=== PATIENT | male | born 1985 | race Hispanic/Latino ===

== ENCOUNTER 2018-01-17 16:55 | Emergency (ER) | payer SELFPAY ==
[2018-01-17 16:58] VITALS: BP 133/74; PULSE 83; RESP 16; TEMP 36.9; O2SAT 99; BMI 22.7
--- NOTE | 2018-01-17 17:40 | RAD_ITS ---
STUDY: X-RAY CHEST REASON FOR EXAM: Male, 32 years old. Trauma TECHNIQUE: Frontal and lateral views of the chest COMPARISON: None. FINDINGS: The lungs are clear. There are no pleural effusions. There is no pneumothorax. The heart is normal in size. The visualized osseous structures are within normal limits. RAD/Chest PA and Lateral IMPRESSION: No acute thoracic pathology. Electronically Signed: Ryland Gibson, at 17:56 EDT Tel , Service support ,
--- NOTE | 2018-01-17 18:34 | ED.VISSUMM ---
- ER Visit Summary Date of Service: 01/17/18 Chief Complaint: [Injury to right chest] History of Present Illness: The patient is a 32 M [presents to the emergency department after sustaining an injury to his right chest 6 days ago. Patient apparently had a fever a week and a half ago and thought he was feeling better but went to work and passed out falling onto a bucket. Patient did not want to seek medical attention initially. Patient continues to have pain to his right chest with movement and trying to lift things with his right arm. Patient denies any shortness of breath. Patient denies any hemoptysis.] Physical Examination: [HEENT-PERRLA, EOMI. Cranial nerves II through XII grossly intact. TMs clear. Mucous membranes moist. No adenopathy. Cardiovascular-regular rate and rhythm without murmur or ectopy Lungs-good aeration bilaterally. Chest wall is stable without crepitus or subcu emphysema. Patient has superficial abrasion over the right chest wall in the mid axillary line. Patient has tenderness to palpation over the right lower anterior ribs. Abdomen-normoactive bowel sounds, soft, nontender, no rebound or rigidity, no peritoneal signs. No tenderness over the liver. Extremities-intact ?4, normal range of motion, normal pulses, atraumatic] Test Results: [Chest x-ray obtained was normal] Emergency Department Course and Treatment: [Patient was given [place] for pain.] Treatment Plan: [Patient will be given a prescription for [place]] Disposition: [Discharged home in stable condition]. Patient advised to return if increasing shortness of breath, hemoptysis, or condition should worsen in any way. Impression: [Chest wall contusion-possible occult rib fracture] This note was generated with Closely dictation software. It may contain incorrect words, spelling, and punctuation that were not noted in review of the chart prior to signing ED Disposition - Plan for ED Patient: Chief Complaint: Fall Referrals: Care Physician,No Primary [Primary Care Provider] -
--- NOTE | 2018-01-17 18:37 | ED.DCSUM_ITS ---
- ER Visit Summary Date of Service: 01/17/18 Chief Complaint: [Injury to right chest] History of Present Illness: The patient is a 32 M [presents to the emergency department after sustaining an injury to his right chest 6 days ago. Patient apparently had a fever a week and a half ago and thought he was feeling better but went to work and passed out falling onto a bucket. Patient did not want to seek medical attention initially. Patient continues to have pain to his right chest with movement and trying to lift things with his right arm. Patient denies any shortness of breath. Patient denies any hemoptysis.] Physical Examination: [HEENT-PERRLA, EOMI. Cranial nerves II through XII grossly intact. TMs clear. Mucous membranes moist. No adenopathy. Cardiovascular-regular rate and rhythm without murmur or ectopy Lungs-good aeration bilaterally. Chest wall is stable without crepitus or subcu emphysema. Patient has superficial abrasion over the right chest wall in the mid axillary line. Patient has tenderness to palpation over the right lower anterior ribs. Abdomen-normoactive bowel sounds, soft, nontender, no rebound or rigidity, no peritoneal signs. No tenderness over the liver. Extremities-intact ?4, normal range of motion, normal pulses, atraumatic] Test Results: [Chest x-ray obtained was normal] Emergency Department Course and Treatment: [Patient was given [place] for pain.] Treatment Plan: [Patient will be given a prescription for [place]] Disposition: [Discharged home in stable condition]. Patient advised to return if increasing shortness of breath, hemoptysis, or condition should worsen in any way. Impression: [Chest wall contusion-possible occult rib fracture] This note was generated with [employer] dictation software. It may contain incorrect words, spelling, and punctuation that were not noted in review of the chart prior to signing ED Disposition - Plan for ED Patient: Chief Complaint: Fall Referrals: Care Physician,No Primary [Primary Care Provider] -
--- NOTE | 2018-01-17 18:37 | ED.DEP ---
ED Disposition - Plan for ED Patient: Chief Complaint: Fall Instructions: ED Mechanical Fall, ED Contusion Chest Wall, ED Contusion Vs Minor Fx Rib Prescriptions: Hydrocodone Bitart/Apap 5-325 [[place] 5/325] 1 - 2 tab PO Q4H PRN PRN 5 Days #20 tab PRN Reason: Pain Referrals: Care Physician,No Primary [Primary Care Provider] - Tommy Martinez MD [STAFF PHYSICIAN] - 5-7 Days
--- NOTE | 2018-01-17 18:40 | DCINST.ED_ITS ---
ED Disposition - Plan for ED Patient: Chief Complaint: Fall Instructions: ED Mechanical Fall, ED Contusion Chest Wall, ED Contusion Vs Minor Fx Rib Prescriptions: Hydrocodone Bitart/Apap 5-325 [[place] 5/325] 1 - 2 tab PO Q4H PRN PRN 5 Days #20 tab PRN Reason: Pain Referrals: Care Physician,No Primary [Primary Care Provider] - Tommy Martinez MD [STAFF PHYSICIAN] - 5-7 Days
--- NOTE | 2018-01-17 18:40 | ED.DEP ---
ED Disposition - Plan for ED Patient: Chief Complaint: Fall Instructions: ED Contusion Chest Wall, ED Mechanical Fall, ED Contusion Vs Minor Fx Rib Prescriptions: Hydrocodone Bitart/Apap 5-325 [[place] 5/325] 1 - 2 tab PO Q4H PRN PRN 5 Days #20 tab PRN Reason: Pain Referrals: Tommy Martinez MD [STAFF PHYSICIAN] - 5-7 Days Care Physician,No Primary [Primary Care Provider] -
[2018-01-17] MEDS: HYDROcodone Bitartrate/Apap 5/325 Tablet PO (18:44)
[2018-01-17 18:48] VITALS: BP 133/74; PULSE 81; RESP 18
--- NOTE | 2018-03-22 09:52 | STRESSREP ---
Stress Test Report Treadmill EKG report: Resting EKG: Normal sinus rhythm, normal axis, low voltage. No previous myocardial infarction noted. Treadmill EKG: Patient exercise according to Huy protocol for 8 minutes and 30 seconds achieving a maximum workload of 10.1 0 METS. Resting heart rate was initially 70 beats a minute and sergio to maximum 166 beats a minute which represents 97% of the maximal age-predicted heart rate. Resting blood pressure was 132/88 sergio to maximum of 158/88. Test was terminated due to the attainment of target heart rate and dyspnea. During exercise the patient's heart rate increased as expected. Patient had no dynamic EKG changes to suggest ischemia. No arrhythmias noted. Conclusions: Normal adequate treadmill EKG. Negative for ischemia by EKG criteria. No anginal symptoms noted. No arrhythmias noted. Appropriate blood pressure response to exercise. Average exercise capacity for age. Test terminated due to dyspnea. No complications.
== END 2018-01-17 18:49 | disposition home or self-care (01) ==
PROVIDERS: Emergency Provider Emergency Medicine
DX: S20.219A Contusion of unspecified front wall of thorax, initial encounter (principal); W18.30XA Fall on same level, unspecified, initial encounter; Y93.9 Activity, unspecified; Y92.9 Unspecified place or not applicable; Y99.9 Unspecified external cause status
CPT/HCPCS: 71046; 99282

== ENCOUNTER → 2019-02-13 15:16 | Outpatient (CLI) | payer OTHER, SELFPAY ==
[2019-02-13 15:10] VITALS: BMI 22.8
--- NOTE | 2019-02-13 15:17 | RAD_ITS ---
STUDY: X-RAY - LEFT HAND REASON FOR EXAM: Male, 33 years old. Pain in fourth finger TECHNIQUE: 4 view(s) of the hand. COMPARISON: None. FINDINGS: Normal radiocarpal articulation. Normal distal radioulnar joint. Normal visualized carpal bones. Normal carpal articulations Normal carpometacarpal articulation of the thumb. Normal second through fifth carpometacarpal joints. Normal metacarpi. Normal metacarpophalangeal joint of the thumb. Normal interphalangeal joint of the thumb. Normal proximal and distal phalanges of the thumb. Normal metacarpophalangeal joints of the second through fifth fingers. Normal proximal and distal interphalangeal joints of the second through fifth fingers. There is a comminuted fracture of the proximal phalanx of the fourth finger with no significant bony displacement. The soft tissue structures are unremarkable. RAD/Hand Min 3 Views IMPRESSION: There is a comminuted fracture of the proximal phalanx of the fourth finger. Electronically Signed: Guanakito Breen DO at 18:53 EDT Tel [phone], Service support ,
== END ==
PROVIDERS: Referring Provider Orthopaedic Surgery; Visit Provider Orthopaedic Surgery
DX: S62.615A Displaced fracture of proximal phalanx of left ring finger, initial encounter for closed fracture (principal); S67.22XA Crushing injury of left hand, initial encounter; X58.XXXA Exposure to other specified factors, initial encounter; Y93.9 Activity, unspecified; Y92.9 Unspecified place or not applicable; Y99.9 Unspecified external cause status
CPT/HCPCS: 73130

== ENCOUNTER → 2019-03-01 15:41 | Outpatient (CLI) | payer OTHER, SELFPAY ==
[2019-02-13 15:10] VITALS: BMI 22.8
--- NOTE | 2019-03-01 15:43 | RAD_ITS ---
STUDY: X-RAY - LEFT HAND REASON FOR EXAM: Male, 33 years old. Fracture follow-up. Cast removal. TECHNIQUE: 4 view(s) of the hand. COMPARISON: February 13, 2019 FINDINGS: Normal radiocarpal articulation. Normal distal radioulnar joint. Normal visualized carpal bones. Normal carpal articulations Normal carpometacarpal articulation of the thumb. Normal second through fifth carpometacarpal joints. Normal metacarpi. Normal metacarpophalangeal joint of the thumb. Normal interphalangeal joint of the thumb. Normal proximal and distal phalanges of the thumb. Normal metacarpophalangeal joints of the second through fifth fingers. Normal proximal and distal interphalangeal joints of the second through fifth fingers. There is a comminuted fracture of the mid and proximal diaphysis of the fourth proximal phalanx. No intra-articular involvement is visualized. There is no significant displacement. The fracture has not significantly changed in appearance since the prior examination. The soft tissue structures are unremarkable. RAD/Hand Min 3 Views IMPRESSION: Stable comminuted fourth proximal phalanx fracture. Electronically Signed: Cheryl Randall MD at 16:05 EDT Tel , Service support ,
== END ==
PROVIDERS: Referring Provider Orthopaedic Surgery; Visit Provider Orthopaedic Surgery
DX: S62.615A Displaced fracture of proximal phalanx of left ring finger, initial encounter for closed fracture (principal); S67.22XA Crushing injury of left hand, initial encounter; X58.XXXA Exposure to other specified factors, initial encounter; Y93.9 Activity, unspecified; Y92.9 Unspecified place or not applicable; Y99.9 Unspecified external cause status
CPT/HCPCS: 73130

== ENCOUNTER → 2019-03-17 11:28 | Outpatient (CLI) | payer OTHER, SELFPAY ==
[2019-03-17 07:59] VITALS: BMI 22.8
--- NOTE | 2019-03-17 11:29 | RAD_ITS ---
HISTORY:INJURY, PAIN INJURY, PAIN COMPARISON: March 01, 2019 FINDINGS: # of images incl. paperwork: 3 XR Hand Min 3 Views: Left BONE AND JOINTS: Again noted a spiral fracture involving the proximal phalanx of the fourth finger left hand. No significant displacement. SOFT TISSUES: Unremarkable. No radiopaque foreign body. RAD/Hand Min 3 Views IMPRESSION: Fourth finger fracture left hand. Similar at 2359 Reported and signed by: Siobhan Birch DO Electronically Signed: Siobhan Birch DO at 23:58 EDT Tel , Service support ,
== END ==
PROVIDERS: Referring Provider Orthopaedic Surgery; Visit Provider Orthopaedic Surgery
DX: S62.615A Displaced fracture of proximal phalanx of left ring finger, initial encounter for closed fracture (principal); X58.XXXA Exposure to other specified factors, initial encounter; Y93.9 Activity, unspecified; Y92.9 Unspecified place or not applicable; Y99.9 Unspecified external cause status
CPT/HCPCS: 73130

== ENCOUNTER 2019-03-30 16:00 | Outpatient (RCR) | payer OTHER, SELFPAY ==
[2019-03-01 16:00] VITALS: BMI 22.8
--- NOTE | 2019-03-08 07:50 | HP.OTEVAL_ITS ---
Patient's Visit Information MICHAEL WICK is a 33 year old M, referred to Occupational Therapy by Anish Cruz DO, with a diagnosis of left RF crushing injury fx. Date of Evaluation: 03/06/19 Occupational Therapist: LORENZO Will/[place], CHT - Subjective Subjective: This 33 year old male was seen for OT eval with dx of left ring finger crushing injury. Pt arrives with his brother who is interpreting for pt. DOI 01/18/19 pt was casted for 5 weeks- per pt due to slow healing. Today pt reports pain and difficulty with wrist and digit ROM limiting full use of his left hand. - Pain left hand 2 Pain Intensity Range: 0, 5 - ROM Wrist: right 75/60 left 55/45 ROM Comments: left RF MCP 0/70 PIP 0/75 DIP 0/50 right MCP 0/80 PIP 0/105. 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 Pt will demo an increase in lateral and tripod pinch by 2# to increase pts independent with opening baggies, containers at PLOF by D/C. Goal:: Pt will demo an increase in wrist and left RF/LF ROM equal to unaffected wrist to return pt to PLOF with grooming, dressing and home mtg tasks by D/C. pt will demo complete left handed composite grasp equal to right to increase ind. use of left hand for ADLs and IADLS by d/c Goal:: Pt will report no pain greater than 1/10 with use of left hand for daily tasks and simulated work tasks in theray by d/c - Rehabilitation General Assessment: Pt demo with limited ROM and strength of left wrist/hand. This is limiting pt with ADLs, IADLs and work tasks. Pt would benefit from skilled OT services 2-3 x week for 4 weeks to return pt to PLOF. Today pt was instructed in AROM ex and given handout. pt and pts brother demo understanding and agree to POC. Rehabilitation Potential: Excellent - Anticipated Interventions Anticipated Interventions: A/AAROM/PROM, Strengthening, Edema Control, Modalities, Orthoses - Visit Plan Frequency: 2-3x /Week Duration: 4 Weeks TEXT: Thank you for the opportunity to evaluate your patient. For Medicare and Medicare HMO plans, please review the plan of care and approve it. It will need to be FAXED BACK to us at [phone] for Medicare purposes. Please let me know if there are questions or concerns regarding this plan of care. Physician Signature: Date:
[2019-03-17 07:59] VITALS: BMI 22.8
--- NOTE | 2019-05-08 09:17 | HP.OTDCNRP_ITS ---
HP - Discharge Summary - Patient Information MICHAEL WICK was seen in my office for initial evaluation on 03/06/19. The following Plan of Care was established for this patient: Initial Frequency: 2-3x /Week Initial Duration: 4 Weeks Plan: wait for c9 approval - Anticipated Interventions Anticipated Interventions: A/AAROM/PROM, Strengthening, Edema Control, Modalities, Orthoses This patient was last seen in our office 03/30/19. Pertinent comments regarding their Occupational therapy will appear below: PT was seen for 2 OT sessions, we worked on return of pts ROM and strength. pt w as progressing well. He has not scheduled any further apt at this time. At this point I will be discontinuing this patient from occupational therapy. I would be happy to see this patient again in the future if found appropriate by the physician. Thank you! Eun Kelley, OTR/L, CHT
== END 2019-03-30 19:00 | disposition home or self-care (01) ==
LOC: OT 16:00
PROVIDERS: Referring Provider Orthopaedic Surgery; Visit Provider Orthopaedic Surgery
DX: S62.615D Displaced fracture of proximal phalanx of left ring finger, subsequent encounter for fracture with routine healing (principal); S67.22XD Crushing injury of left hand, subsequent encounter
CPT/HCPCS: 97110; 97140; 97166

== ENCOUNTER 2021-06-07 14:38 | Emergency (ER) | payer SELFPAY ==
[2021-06-07 14:39] VITALS: BP 110/75; PULSE 79; RESP 14; TEMP 36.8; O2SAT 98; BMI 21.1
--- NOTE | 2021-06-07 15:13 | CT_ITS ---
STUDY: CT BRAIN WITHOUT CONTRAST REASON FOR EXAM: Male, 35 years old. Headache RADIATION DOSAGE (If Supplied By Facility): CTDIvol = ( 44.99 ) mGy, DLP = ( 745.49 ) mGycm TECHNIQUE: Transaxial CT imaging of the brain was performed without administration of intravenous contrast material. Individualized dose optimization techniques were used for this CT. COMPARISON: No relevant priors. FINDINGS: Brain parenchyma is without focal lesions, mass effect, acute intracranial hemorrhage, extra parenchymal fluid collections, hydrocephalus or herniation. The skull is intact. CT/Brain/Head without Contrast IMPRESSION: 1. Normal CT brain. Electronically Signed: Navin Granado MD at 16:27 EDT Tel , Service support ,
--- NOTE | 2021-06-07 15:14 | CT_ITS ---
STUDY: CT ABDOMEN AND PELVIS WITH CONTRAST REASON FOR EXAM: Male, 35 years old. Abdominal pain RADIATION DOSAGE (If Supplied By Facility): CTDIvol = ( 9.64 ) mGy, DLP = ( 520.35 ) mGycm TECHNIQUE: CT images were obtained from the dome of the diaphragm to the symphysis pubis without oral contrast. IV 100mL Isovue-300 was administered. Sagittal and coronal images were reconstructed. Individualized dose optimization techniques were used for this CT. COMPARISON: None. FINDINGS: The visualized lung bases are unremarkable. The visualized portions of the heart are within normal limits. Normal liver. Normal gallbladder and extrahepatic biliary system. Normal spleen. Normal pancreas. Normal bilateral adrenal glands. Normal right kidney. Normal left kidney. Normal visualized stomach. Normal small intestine. Normal colon. The appendix is visualized and appears normal. Normal abdominal aorta. Normal inferior vena cava. Normal retroperitoneum. Normal urinary bladder. Normal abdominal wall. Normal osseous structures. CT/Abdomen/Pelvis W IV Cont ONLY IMPRESSION: Normal enhanced CT of the abdomen and pelvis. Electronically Signed: Navin Granado MD at 16:31 EDT Tel , Service support ,
--- NOTE | 2021-06-07 15:16 | EDS_ITS ---
HPI History of Present Illness Chief Complaint: Weakness Narrative Narrative: 35-year-old male presenting with his brother for evaluation of 3 months of weakness. Patient's brother interprets for him. He states that he has had intermittent headaches over the last 3 months. He also complains of shortness of breath at times. He complains of dyspepsia and epigastric burning as well as acid reflux. Patient does state that he has epigastric pain. His brother states that he is losing weight. Yesterday the patient had to leave work because he was too weak and tired. Patient has not seen a primary care physician because he does not have insurance. He states he does not have a fever, chills. He denies constipation or diarrhea. He has no history of migraines. PFSH PFSH Allergy/AdvReac Type Severity Reaction Status Date / Time No Known Allergies Allergy Unverified 02/13/19 15:11 Social History Smoking Status: Never smoker ROS ROS ED Constitutional Constitutional ED: Reports weight loss; Denies chills or fever(s) Eyes Eyes: Denies blurry vision or diplopia ENT ENT ED: Denies rhinorrhea or sore throat Cardiovascular Cardiovascular: Reports chest pain; Denies palpitations Respiratory/Chest Respiratory/Chest: Reports dyspnea and dyspnea on exertion; Denies cough Gastrointestinal Gastrointestinal: Reports abdominal pain and other Details: Dyspepsia Genitourinary Genitourinary ED: Denies dysuria or hematuria Musculoskeletal Musculoskeletal: Denies arthralgias, back pain, myalgias or neck pain Integumentary Denies Abrasions or rash Neurologic Neurologic: Reports headache(s); Denies paresthesias EXAM Physical Exam Const Vital Signs: 06/07/21 14:39 06/07/21 14:46 06/07/21 17:10 Temperature 98.2 F Temperature Source Temporal Pulse Rate 79 Respiratory Rate 14 16 Respiratory Effort Normal Non-Labored Respiratory Pattern Normal Blood Pressure 110/75 97/68 Blood Pressure Mean 86 77 Pulse Ox 98 Oxygen Delivery Method Room Air Positive well nourished and well developed General Appearance ED: well developed and NAD; Negative for pallor HEENT Reports moist mucous membranes Negative for trauma Eyes PERRL and EOMs intact bilaterally General Eye ED: Negative for pale conjunctiva or scleral icterus Neck no lymphadenopathy and supple Chest Wall inspection of chest normal and palpation of chest normal Resp normal respiratory effort and clear to auscultation bilaterally Effort and Inspection: Negative for pain with movement Auscultation: Negative for rales or rhonchi Cardio regular rate, regular rhythm and no murmurs GI normal to inspection, nondistended, normoactive bowel sounds Extremity normal to inspection General Extremety ED: Negative for edema or tenderness General Extremity: Negative for edema Neuro oriented x3, CN's II-XII intact bilaterally and no sensory deficits noted Sensorium / Orientation: alert Motor Exam: strength 5/5 throughout Psych mental status grossly normal Skin no rashes or lesions noted and no wounds General Skin Exam: Negative for jaundice or pallor MDM MDM MDM Narrative Medical decision making narrative: Patient presents with his brother with multiple symptoms. His brother does interpret. Patient expresses some epigastric discomfort as well as some intermittent chest pains as well as fatigue and headache. Patient's lab work-up is unremarkable. Urine drug screen is negative. Urinalysis is negative. CT brain is negative for acute intracranial process. CT of the abdomen pelvis shows no acute abnormality. EKG on my interpretation shows a normal sinus rhythm with a ventricular rate of 63 bpm without signs of ischemic changes. Patient was treated with Reglan and Benadryl for his head and his headache is resolved. He was given IV Pepcid and his epigastric pain is also resolved. Patient has mother counseled that they need to establish with a primary care provider in one was provided. They are given instructions to buy an [id number] PPI. All questions were answered and the patient was discharged home in stable condition. Impression: 1. Headache 2. Generalized weakness unknown cause 3. Abdominal pain Lab Data Attestation: I reviewed the patient's lab results. Labs: Laboratory Results - last 24 hr 06/07/21 06/07/21 06/07/21 15:35 15:35 16:20 WBC 6.2 RBC 5.05 Hgb 15.9 Hct 46.5 MCV 92.1 MCH 31.5 MCHC 34.2 RDW Std Deviation 41.2 RDW Coeff of Irvin 12.2 Plt Count 192 MPV 11.0 Immature Gran % (Auto) 0.300 Neut % (Auto) 61.0 Lymph % (Auto) 22.3 [place] % (Auto) 6.3 Eos % (Auto) 9.5 H Baso % (Auto) 0.6 Absolute Neuts (auto) 3.8 Absolute Lymphs (auto) 1.39 Nucleated RBC % 0 Sodium 138 Potassium 3.9 Chloride 107 Carbon Dioxide 26.0 Anion Gap 5 BUN 17 Creatinine 0.79 Estim Creat Clear Calc 126.64 Est GFR (MDRD) Af Amer 143 Est GFR (MDRD) Non-Af 118 BUN/Creatinine Ratio 21.5 H Glucose 97 Calcium 9.2 Total Bilirubin 0.50 AST 24 ALT 37 Alkaline Phosphatase 96 Troponin I High Sens 9 Total Protein 7.2 Albumin 3.7 Globulin 3.5 Albumin/Globulin Ratio 1.1 Lipase 76 Urine Color Urine Clarity Urine pH Ur Specific [place] Urine Protein Urine Glucose (UA) Urine Ketones Urine Occult Blood Urine Nitrite Urine Bilirubin Urine Urobilinogen Ur Leukocyte Esterase Urine RBC Urine WBC Ur Squamous Epith Cells Urine Bacteria Urine Mucus Urine Opiates Screen NEGATIVE Urine Methadone Screen NEGATIVE Ur Barbiturates Screen NEGATIVE Ur Phencyclidine Scrn NEGATIVE Ur Amphetamines Screen NEGATIVE U Methamphetamin-MDMA NEGATIVE U Benzodiazepines Scrn NEGATIVE Urine Cocaine Screen NEGATIVE U Cannabinoids Screen NEGATIVE Ur Drug Screen Comment 06/07/21 16:20 WBC RBC Hgb Hct MCV MCH MCHC RDW Std Deviation RDW Coeff of [place] Plt Count MPV Immature Gran % (Auto) Neut % (Auto) Lymph % (Auto) [place] % (Auto) Eos % (Auto) Baso % (Auto) Absolute Neuts (auto) Absolute Lymphs (auto) Nucleated RBC % Sodium Potassium Chloride Carbon Dioxide Anion Gap BUN Creatinine Estim Creat Clear Calc Est GFR (MDRD) Af Amer Est GFR (MDRD) Non-Af BUN/Creatinine Ratio Glucose Calcium Total Bilirubin AST ALT Alkaline Phosphatase Troponin I High Sens Total Protein Albumin Globulin Albumin/Globulin Ratio Lipase Urine Color Yellow Urine Clarity Clear Urine pH 6.5 Ur Specific [place] 1.010 Urine Protein Negative Urine Glucose (UA) Normal Urine Ketones Negative Urine Occult Blood Negative Urine Nitrite Negative Urine Bilirubin Negative Urine Urobilinogen Normal Ur Leukocyte Esterase Negative Urine RBC 0 SEEN Urine WBC 0 SEEN Ur Squamous Epith Cells 0 SEEN Urine Bacteria 0 SEEN Urine Mucus 0 SEEN Urine Opiates Screen Urine Methadone Screen Ur Barbiturates Screen Ur Phencyclidine Scrn Ur Amphetamines Screen U Methamphetamin-MDMA U Benzodiazepines Scrn Urine Cocaine Screen U Cannabinoids Screen Ur Drug Screen Comment Radiography Diagnostic Testing: Radiology Impression Brain CT 06/07/21 15:13 IMPRESSION: 1. Normal CT brain. Electronically Signed: Navin Granado MD at 16:27 EDT Tel , Service support , Abdomen/Pelvis CT 06/07/21 15:14 IMPRESSION: Normal enhanced CT of the abdomen and pelvis. Electronically Signed: Navin Granado MD at 16:31 EDT Tel , Service support , Discharge Plan Triage Chief Complaint: Weakness ED Provider: Malik Johnson Dx/Rx/DC Orders Instructions: ED Weakness (Uncertain Cause) Primary Care Provider: Care Physician,No Primary Referrals: Delores Luna MD [STAFF PHYSICIAN] - As Needed Care Physician,No Primary [Primary Care Provider] - Disposition Disposition: Home, Self Care Discharge Date/Time: 06/07/21 18:01
--- NOTE | 2021-06-07 15:18 | EKG12_ITS ---
Test Reason : WEAKNESS Blood Pressure : / mmHG Vent. Rate : 063 BPM Atrial Rate : 063 BPM P-R Int : 146 ms QRS Dur : 086 ms QT Int : 378 ms P-R-T Axes : 065 060 040 degrees QTc Int : 386 ms Normal sinus rhythm Nonspecific ST abnormality Abnormal ECG Confirmed by BLAIRE DENTON, SHANNAN ([id number]), commissioning editor NEDA CUENCA ([id number]) on 06/10/2021 8:03:23 AM Referred By: DELORES Confirmed By:JANIYA RUDD MD
[2021-06-07] MEDS: 0.9% Normal Saline 1,000 ML 1000 ML IV (15:33)
[2021-06-07] MEDS: Metoclopramide 10 MG/2 ML Vial IV (15:33)
[2021-06-07] MEDS: DiphenhydrAMINE 50 MG/ML Syringe 25 MG IV (15:33)
[2021-06-07 15:43] LABS: Absolute Lymphocyte Count 1.39 X10^3/uL (0.83-4.51); Absolute Neutrophil Count 3.8 X10^3/uL (2.0-7.7); Basophil# 0.04 X10^3/uL; Basophil% 0.6 % (0-1); Eosinophil# 0.59 X10^3/uL; Eosinophils% 9.5 % (0-5); Hematocrit 46.5 % (40-54); Hemoglobin 15.9 g/dL (13.0-16.5); Lymphocyte # 1.39 X10^3/ul (0.83-4.51); Lymphocyte % 22.3 % (19-41); Mean Corp Hgb Conc 34.2 g/dL (32-36); Mean Corpuscular Hgb 31.5 pg (27.0-32.0); Mean Corpuscular Volume 92.1 fL (80-94); Monocyte# 0.39 X10^3/uL; Monocyte% 6.3 % (0-10); NRBC Flagged by Analyzer 0 % (0-5); Neutrophil # 3.81 X10^3/uL (2.7-7.7); Platelet Count 192 K/mm3 (150-450); RBC Distribution Width CV 12.2 % (11.6-14.6); RBC Distribution Width SD 41.2 fl (35.1-43.9); Red Blood Count 5.05 M/mm3 (4.6-6.2); White Blood Count 6.2 K/mm3 (4.4-11.0)
[2021-06-07 16:02] LABS: ALB/GLOB Ratio 1.1 RATIO (0.9-2.4); AST(SGOT) 24 U/L (15-37); Alanine Aminotransfer ALT/SGPT 37 U/L (16-61); Albumin, Serum 3.7 g/dL (3.2-5.0); Alkaline Phosphatase 96 U/L (45-117); Anion Gap 5 (5-15); BUN 17 mg/dL (7-18); BUN/Creat Ratio 21.5 RATIO (10-20); Calcium,Total 9.2 mg/dL (8.5-10.1); Chloride 107 mmol/L (98-107); Creatinine, Serum 0.79 mg/dL (0.70-1.30); EST Glomerular Filtration Rate 118 mL/min (>60); Est Glom Filt Rate - Afr Amer 143 mL/min (>60); Estimated Creatinine Clearance 126.64 ml/min; Globulin 3.5 g/dL (2.2-4.2); Glucose 97 mg/dL (74-106); Lipase 76 U/L (73-393); Potassium 3.9 mmol/L (3.5-5.1); Protein, Total 7.2 g/dL (6.4-8.2); Sodium Level 138 mmol/L (136-145); Troponin-I HS 9 pg/mL (3.0-78.0)
[2021-06-07] MEDS: Famotidine 200 MG/20 ML MDV 20 MG in 0.9% Normal Saline (Pres. free 8 ML 300 MG IV (16:04)
[2021-06-07 16:28] LABS: Bacteria 0 SEEN /hpf (None Seen); Mucous, Urine 0 SEEN /hpf (<or=2+); Red Blood Cells-Urine 0 SEEN /hpf (0-5); Squamous Epithelial Cells - UA 0 SEEN /hpf (0-5); White Blood Cells 0 SEEN /hpf (0-5)
[2021-06-07 16:30] LABS: Color, Urine Yellow (Yellow); Glucose, Dipstick Normal (Normal); Ketone-Dipstick Negative (Negative); Leukocyte Esterase-Dipstick Negative /ul (Negative); Nitrite-Dipstick Negative (Negative); Occult Blood-Urine Negative /ul (Negative); Protein-Dipstick Negative (Negative); Urine Bilirubin Dipstick Negative (Negative); Urine Clarity Clear (Clear); Urine Urobilinogen Normal (Normal); Urine pH 6.5 (5.0 - 8.0)
[2021-06-07 16:58] LABS: Amphetamine Urine VISTA NEGATIVE (<1000 ng/mL); Barbiturate Urine VISTA NEGATIVE (< 200 ng/mL); Benzodiazepine Urine VISTA NEGATIVE (< 200 ng/mL); Cocaine Urine VISTA NEGATIVE (< 300 ng/mL); Ecstacy Urine VISTA NEGATIVE (< 500 ng/mL); Methadone Urine VISTA NEGATIVE (< 300 ng/mL); PCP Urine VISTA NEGATIVE (< 25 ng/mL); THC Urine VISTA NEGATIVE (< 50 ng/mL); Vista UDS pH Range 6
[2021-06-07 17:10] VITALS: BP 97/68; RESP 16
== END 2021-06-07 18:01 | disposition home or self-care (01) ==
PROVIDERS: Emergency Provider Student in an Organized Health Care Education/Training Program
DX: R51.9 Headache, unspecified (principal); R53.1 Weakness; R10.9 Unspecified abdominal pain
CPT/HCPCS: 70450; 74177; 80053; 80307; 81001; 83690; 84484; 85025; 87426; 93005; 96374; 96375; 99283; J7030; Q9967; A4216; J3490

== ENCOUNTER 2023-02-10 17:51 | Emergency (ER) | payer OTHER, SELFPAY ==
[2023-02-10 17:52] VITALS: BP 106/79; PULSE 62; RESP 16; TEMP 37; O2SAT 99; BMI 23.3
--- NOTE | 2023-02-10 18:06 | CT_ITS ---
STUDY: CT BRAIN WITHOUT CONTRAST REASON FOR EXAM: Male, 37 years old. headache RADIATION DOSAGE (If Supplied By Facility): CTDIvol = ( 47.06 ) mGy, DLP = ( 890.33 ) mGycm TECHNIQUE: Transaxial CT imaging of the brain was performed without administration of intravenous contrast material. Individualized dose optimization techniques were used for this CT. COMPARISON: 06/07/2021 FINDINGS: Normal soft tissue structures. Normal calvarium. Normal size ventricles and extra-axial spaces for the patient''s age. Normal white matter tracts of the cerebral hemispheres. Normal basal ganglia and thalami. Normal brainstem. Normal cerebellum. There is no intracranial hemorrhage. There are no findings of an acute ischemic infarction. Normal visualized paranasal sinuses. CT/Brain/Head without Contrast IMPRESSION: Normal unenhanced CT scan of the brain. Electronically Signed: Douglas Garcia MD at 18:29 EDT ,
--- NOTE | 2023-02-10 18:06 | CT_ITS ---
STUDY: CT CERVICAL SPINE WITHOUT CONTRAST REASON FOR EXAM: Male, 37 years old. neck pain RADIATION DOSAGE (If Supplied By Facility): CTDIvol = ( 13.92 ) mGy, DLP = ( 271.67 ) mGycm TECHNIQUE: High resolution transaxial imaging was performed without contrast material. Sagittal and coronal images were reconstructed. Individualized dose optimization techniques were used for this CT. COMPARISON: None FINDINGS: Normal craniovertebral junction. Normal anterior atlantoaxial articulation. Normal odontoid process. Normal cervical lordosis. Normal vertebral bodies and posterior osseous elements. C2-3: Normal endplates. Normal disc height and morphology. Normal central canal and intervertebral neuroforamina. C3-4: Normal endplates. Normal disc height and morphology. Normal central canal and intervertebral neuroforamina. C4-5: Normal endplates. Normal disc height and morphology. Normal central canal and intervertebral neuroforamina. C5-6: Normal endplates. Normal disc height and morphology. Normal central canal and intervertebral neuroforamina. C6-7: Normal endplates. Normal disc height and morphology. Normal central canal and intervertebral neuroforamina. C7-T1: Normal endplates. Normal disc height and morphology. Normal central canal and intervertebral neuroforamina. Normal visualized soft tissue structures. CT/Spine Cervical without Contras IMPRESSION: Normal unenhanced CT examination of the cervical spine. Electronically Signed: Douglas Garcia MD at 18:32 EDT ,
[2023-02-10] MEDS: Ketorolac 15 MG/ML Vial IM (18:23)
[2023-02-10] MEDS: Orphenadrine 60 MG/2 ML Ampul IM (18:23)
--- NOTE | 2023-02-10 18:23 | EDS_ITS ---
HPI History of Present Illness Chief Complaint: Other, Pain/Inj Narrative Narrative: 37-year-old male presenting with neck pain. He is [place]-speaking but he has for a friend who is an budget assistant for him. Patient was playing soccer with him and fell down another player excellently fell on his neck with his knee. He denies loss of consciousness. He states he had a little bit of neck pain initially but then was able to keep playing soccer. Over the course of the last couple days he had continued pain which comes and goes. Sometimes moving it makes it worse and sometimes it does not. No paresthesias. PFSH PFSH Home Medications cyclobenzaprine 10 mg tablet 10 mg PO TID PRN Muscle Spasm #20 TABLETS 02/10/23 [Rx Last Taken Unknown] naproxen 500 mg tablet (Naprosyn) 500 mg PO BID PRN pain #20 tabs 02/10/23 [Rx Last Taken Unknown] Allergy/AdvReac Type Severity Reaction Status Date / Time No Known Allergies Allergy Verified 02/10/23 17:53 Social History Smoking Status: Never smoker ROS ROS ED Constitutional Constitutional ED: Denies chills, fever(s) or sweats Eyes Eyes: Denies blurry vision or change in vision ENT ENT ED: Denies ear pain or sore throat Cardiovascular Cardiovascular: Denies chest pain, palpitations or racing heartbeat Respiratory/Chest Respiratory/Chest: Denies cough, dyspnea or sputum Gastrointestinal Gastrointestinal: Denies abdominal pain, constipation, diarrhea, nausea or vomiting Genitourinary Genitourinary ED: Denies dysuria, hematuria or urinary frequency Musculoskeletal Musculoskeletal: Reports neck pain; Denies arthralgias or myalgias Integumentary Denies abscess, Abrasions or rash Neurologic Neurologic: Reports headache(s); Denies paresthesias or weakness Psychiatric Psychiatric: Denies anxiety, depression, suicidal ideation or suicidal thoughts Endocrine Endocrinology: Denies polydipsia or polyuria EXAM Physical Exam Const Vital Signs: 02/10/23 17:52 Temperature 98.6 F Temperature Source Temporal Pulse Rate 62 Respiratory Rate 16 Blood Pressure 106/79 Blood Pressure Mean 88 Pulse Ox 99 Oxygen Delivery Method Room Air Positive well nourished General Appearance ED: NAD HEENT atraumatic Eyes PERRL and EOMs intact bilaterally Chest Wall inspection of chest normal and palpation of chest normal Resp normal respiratory effort Auscultation: Negative for rales, rhonchi or wheezes Cardio regular rhythm Rate: regular rate Back/Spine Back/Spine Narrative: Tenderness to palpation in the right cervical paraspinal musculature. Is more tender to palpation at the base of the skull were neck muscles passed to the base of the skull. There is no deformity. No midline spinal tenderness, step- off. Neuro oriented x3, CN's II-XII intact bilaterally, moves all extremities, no focal motor deficits, no sensory deficits noted and gait normal Sensorium / Orientation: alert Motor Exam: strength 5/5 throughout Psych mental status grossly normal and thought process normal Skin no rashes or lesions noted and no wounds MDM MDM MDM Narrative Medical decision making narrative: Patient likely has cervical strain. Since it was traumatic I did obtain a CT brain and cervical spine. Patient medicated with Norflex and Toradol. CT brain and cervical spine are negative for acute findings. Patient will be medicated with cyclobenzaprine and Naprosyn for home. He is counseled on home care. Retu rn precautions discussed. Impression: 1. Neck contusion 2. Headache Radiography Diagnostic Testing: Clinical Impression(s) from Imaging Studies Brain CT 02/10/23 18:06 IMPRESSION: Normal unenhanced CT scan of the brain. Electronically Signed: Douglas Garcia MD at 18:29 EDT , Cervical Spine CT 02/10/23 18:06 IMPRESSION: Normal unenhanced CT examination of the cervical spine. Electronically Signed: Douglas Garcia MD at 18:32 EDT , Discharge Plan Triage Chief Complaint: Other, Pain/Inj ED Provider: Malik Johnson Dx/Rx/DC Orders Instructions: ED Neck Sprain or Strain Prescriptions: New cyclobenzaprine 10 mg tablet 10 mg PO TID PRN (Reason: Muscle Spasm) Qty: 20 0RF naproxen [Naprosyn] 500 mg tablet 500 mg PO BID PRN (Reason: pain) Qty: 20 0RF Primary Care Provider: Care Physician,No Primary Referrals: [facility] [Outside] - As soon as possible Care Physician,No Primary [Primary Care Provider] - Disposition Disposition: Home, Self Care
== END 2023-02-10 19:20 | disposition home or self-care (01) ==
LOC: ED 18:58
PROVIDERS: Emergency Provider Student in an Organized Health Care Education/Training Program; Visit Provider Student in an Organized Health Care Education/Training Program
DX: S10.93XA Contusion of unspecified part of neck, initial encounter (principal); R51.9 Headache, unspecified; W01.0XXA Fall on same level from slipping, tripping and stumbling without subsequent striking against object, initial encounter; W50.0XXA Accidental hit or strike by another person, initial encounter; Y93.66 Activity, soccer
CPT/HCPCS: 70450; 72125; 96372; 99282